=== PATIENT | male | born 1985 | race Caucasian/White ===

== ENCOUNTER 2024-05-11 22:04 | Emergency (ER) | payer BC ==
[~2024-05-11] VITALS: Ht 177.8 cm; Wt 70.3 kg
[2024-05-12 00:34] VITALS: BP 122/76; TEMP 98.5
[2024-05-12 00:38] VITALS: O2SAT 97
== END 2024-05-12 00:38 | disposition home or self-care (01) ==
LOC: ER 22:15
DX: T59.811A Toxic effect of smoke, accidental (unintentional), initial encounter (principal); R05.9 Cough, unspecified; R51.9 Headache, unspecified; Y92.89 Other specified places as the place of occurrence of the external cause